=== PATIENT | female | born 1995 | race Two or more races ===

== ENCOUNTER → 2020-02-19 | Outpatient (CLI) | payer BC, MEDICAID ==
[2015-04-28 10:06] VITALS: BP 115/70
--- NOTE | 2020-02-19 16:13 | RAD ---
EXAM: Obstetrics sonogram. HISTORY: Unknown dates. TECHNIQUE: Sonographic imaging of a gravid uterus was performed. COMPARISON: None. FINDINGS: The uterus measures 13.0 x 7.8 x 6.7 cm. There is a single intrauterine gestational sac with pole and yolk sac. The crown-rump length is 4.0 cm, corresponding with a gestational age of 11 weeks and 0 days. The heart rate is 173 bpm. The gestational sac is normal in configuration and location. The yolk sac is upper normal in size, likely due to measurement technique. No subchorionic hematoma is seen. The ovaries are unremarkable. There is no pelvic free fluid. IMPRESSION: Single intrauterine fetus with normal heart rate and estimated gestational age of 11 weeks and 6 days. Electronically signed by: Nolvia Hooper MD (02/19/2020 4:11 PM) [id number]
== END ==
LOC: US 15:08
PROVIDERS: ATTEND Family Medicine
DX: O26.841 Uterine size-date discrepancy, first trimester (principal); Z3A.11 11 weeks gestation of pregnancy
CPT/HCPCS: 76801